=== PATIENT | female | born 1970 | race Asian ===

== ENCOUNTER 2020-12-18 04:03 | Emergency (ER) | payer MEDICAID ==
[~2020-12-18] VITALS: Ht 165.1 cm; Wt 81.6 kg
[2020-12-18 04:10] VITALS: BP_SYST 170
--- NOTE | 2020-12-18 04:12 | NUR ---
Patient to ER bed 3 to gown for evaluation. Side rails up. Report given to Katelyn KHAN.
--- NOTE | 2020-12-18 04:26 | NUR ---
Dr. Simmons [facility] for pt eval
--- NOTE | 2020-12-18 04:28 | NUR ---
PT BIB FAMILY TO ED C/O BILAT EYE PAIN SINCE LAST NIGHT.STS PAIN STARTED AFTER CONTACT LENSES REMOVED NO OTHER COMPLAINTS NOTED VSS NO S/S OF ACUTE DISTRESS RESTING ON GURNEY RAILS UP
--- NOTE | 2020-12-18 05:28 | NUR ---
VSS no s/s of acute distress Resting on gurney
--- NOTE | 2020-12-18 05:31 | NUR ---
Dr. Simmons bedside for eye exam
[2020-12-18] MEDS ORDERED: DEXAMETH OP ONE (05:45)
[2020-12-18] MEDS ORDERED: NEO OP ONE (05:45)
[2020-12-18] MEDS ORDERED: POLYMYX B SULF OP ONE (05:45)
[2020-12-18] MEDS ORDERED: NAPR-1169 PO (05:51)
[2020-12-18] MEDS ORDERED: TOBR3.5O2 RIGHT EYE ×2 (05:51→06:01)
[2020-12-18] MEDS ORDERED: HYDR-3917 PO ×2 (05:51→06:01)
[2020-12-18] MEDS ORDERED: NAPR-686 PO (06:01)
--- NOTE | 2020-12-18 06:02 | NUR ---
Patient given written and verbal discharge instructions and verbalizes understanding. ER MD discussed with patient the results and treatment provided. Patient in stable condition. ID arm band removed. Rx of Tobramycin, [place], Naprosyn given. Patient educated on pain management and to follow up with PMD. Pain Scale 0/10 Opportunity for questions provided and answered. Medication side effect fact sheet provided.
[2020-12-18 06:04] VITALS: BP_SYST 170
== END 2020-12-18 06:02 | disposition home or self-care (01) ==
LOC: SED 04:03
DX: S05.01XA Injury of conjunctiva and corneal abrasion without foreign body, right eye, initial encounter (principal); Z79.899 Other long term (current) drug therapy; X58.XXXA Exposure to other specified factors, initial encounter; Y93.89 Activity, other specified; Y92.89 Other specified places as the place of occurrence of the external cause; Y99.8 Other external cause status
CPT/HCPCS: 99283